=== PATIENT | female | born 2000 | race Asian ===

== ENCOUNTER 2024-09-20 06:33 | Inpatient (IN) | payer MEDICAID, SELFPAY ==
[2024-09-20] VITALS (93 sets, daily range): BP systolic 97–185; BP diastolic 53–86; PULSE 70–131; RESP 16–97; TEMP 36.6–36.8; O2SAT 75–100; BMI 28.4
--- NOTE | 2024-09-20 07:22 | PD.LDHP ---
Documentation for date of: 09/20/24 OB Labor/Induct. HPI History of Present Illness Chief complaint: 23 y/o 39w 4d presents to L&D in early labor at 3 cm : 2 Para: 1 Term pregnancies: 1 pregnancies: 0 Living children: 1 History of Abortions: Spontaneous and Elective: 0 History of Vaginal deliveries: 1 History of sections: No History of : No DARRYL: 09/23/24 Gestational Age (weeks): 39 Gestational Age (days): 4 History of present illness: 23 y/o 39w 4d presents to L&D in early labor at 3 cm vertex, eufemia every 5 minutes, rating pain 9/10 and requesting an epidural. Pt was 1.5 cm at office yesterday and today she has progressed to 3 cm. Pt's has been unremarkable with the exception of MFM [facility] found the fetus to have 2 small VSD, other than that pt has had a normal . GBS is neg. EFW 3200g. Pt has a hx of nvdx1. No complications. History of Present Adequate Care: Yes Ultrasounds: normal 1st trimester US and normal mid trimester US Obstetrical complications: none Medical complications: none Labs Maternal Blood Type: O Pos Labs: Positive: Rubella Titre, Negative: RPR, Hepatitis B, HIV, Chlamydia, Gonorrhea and Group Beta Strep and Unknown: Herpes Type 1, Herpes Type 2 and Covid-19 Review of Systems Review of Systems Systems Reviewed: All systems reviewed, normal except as documented Past Medical History Surgical History SURGICAL: Negative Section Meds Home Medications and Allergies Home Medications ?Medication ?Instructions ?Recorded ?Confirmed ?Type folic acid 1 mg tablet 1 mg PO DAILY 05/20/23 05/20/23 History vits no.130-ferrous fum 1 tab PO DAILY 05/20/23 05/20/23 History 27 mg iron-folic acid 800 mcg tablet ( Vitamin) Allergies Allergy/AdvReac Type Severity Reaction Status Date / Time No Known Allergies Allergy Verified 09/20/24 08:47 OB Exam Physical Exam Vital signs: Temp Pulse Resp BP 97.8 F 70 17 107/74 09/20/24 06:45 09/20/24 06:45 09/20/24 06:45 09/20/24 06:45 Constitutional Constitutional: mild distress (Secondary to painful contractions) Routine HEENT Exam Head: Present normocephalic and atraumatic Eye: Present EOMI, PERRL and normal accommodation ENT: Present mucous membranes moist Routine Neck Exam Neck: Present full ROM Routine Respiratory Exam Respiratory: Absent respiratory distress Routine Cardiovascular Exam Cardiovascular: Present RRR Routine Abdominal Exam Abdominal: Present soft and normoactive bowel sounds Comments: Gravid Uterus EFW 3200g Routine Exam External: Present normal urethra appearance; Absent lesions Detailed Labor and Delivery Exam Dilation (cm): 3 Effacement (%): 80 Cervix position: posterior station: -2 Consistency: soft Presentation: Vertex Membranes: intact Baseline heart rate: 125 monitor accelerations: 15x15 monitor decelerations: None care home variability: Moderate (11-25) Contraction frequency (min): 5-6 Routine Extremities Exam Extremities: Present full ROM Routine Back/Spine/Pelvis Exam Back/Spine: Present full ROM Routine Skin Exam Skin: Present intact, dry and warm Routine Neurological Exam Neurological: Present alert, oriented X3 and CN II-XII intact Routine Psychiatric Exam Psychiatric: Present normal affect and normal thought process OB Results Labs 09/20/24 07:15 OB Assessment & Plan Assessment and Plan (1) Normal labor: Status: Acute (2) with 39 completed weeks gestation: Status: Acute Additional Plan Induction method: none Plan: augmentation, anticipate NVD and consult MD corral Additional Plan Comment: Routine Admit orders Consult anesthesia for an epidural Continuous EFM Alert peds to do a echo
[2024-09-20 07:58] LABS: Basophils % (Auto) 0 % (0-2.5); Eosinophils # (Auto) 0.1 Thou/mm3 (0.0-0.5); Eosinophils % (Auto) 1 % (0-10); Hematocrit 34.4 % (36.0-46.0); Hemoglobin 11.2 g/dL (12.0-16.0); Immature Granulocytes % (Auto) 1 % (0-0); Immature Granulocytes Auto 0.09 Thou/mm3 (0.00-0.00); Lymphocytes # (Auto) 2.2 Thou/mm3 (1.0-4.8); Lymphocytes % (Auto) 23 % (10-50); Mean Corpuscular HGB Conc 32.6 g/dl (31.0-37.0); Mean Corpuscular Hemoglobin 26.7 pg (25.0-35.0); Mean Corpuscular Volume 82 fL (80-100); Monocytes # (Auto) 1.1 Thou/mm3 (0.0-0.8); Monocytes % (Auto) 11 % (0-12); Neutrophils # (Auto) 6.1 Thou/mm3 (1.8-7.7); Neutrophils % (Auto) 64 % (37-80); Nucleated Red Blood Cell % 0 /100 WBC (0); Platelet Count 202 Thou/mm3 (140-440); RDW Standard Deviation 45.1 fL (36.4-46.3); White Blood Count 9.6 Thou/mm3 (3.6-11.0)
[2024-09-20 08:41] LABS: Syphilis Nonreactive (Nonreactive)
[2024-09-20] MEDS: RINGERS LACTATED 1000 ML 1,000 ML 100 ML IV ×2 (09:21→10:15)
--- NOTE | 2024-09-20 10:44 | PD.LDPN ---
Documentation for date of: 09/20/24 OB Labor Progress Note Pain Control Pain control: epidural Pelvic Exam Dilation (cm): 7 Effacement (%): 90 station: -1 Amniotic membrane status: Bulging Contractions Monitor mode: External Contraction frequency: 2-3 Contraction phase: Contraction Contraction intensity: Moderate Status status: Category l Assessment and Plan Assessment: active labor Plan OB labor note: continuous present management Comments: Pt is laboring well on her own making excellent cervical change Plan to AROM later Anticipate
[2024-09-20] MEDS: BENZO/LANO/ALOE (Dermoplast) 60 GM CAN 1 SPRAY TOP ×2 (12:47→15:11)
[2024-09-20] MEDS: MINERAL OIL 30 ML UDC TOP (12:47)
[2024-09-20] MEDS: IBUPROFEN TAB 400 MG TABLET 800 MG PO ×2 (12:48→21:03)
[2024-09-20] MEDS: TRANEXAMIC ACID 1,000 MG IVPB 1,000 MG/100 ML BAG 200 MG IV ×2 (12:52→14:14)
--- NOTE | 2024-09-20 12:59 | OBDSUM_ITS ---
Data ([place]) Data Hx Section: No Maternal Blood Type: O Pos Rubella Titre: Positive RPR: Non-reactive Labs: Negative: RPR, Hepatitis B, HIV, Chlamydia, Gonorrhea and Group Beta Strep and Unknown: Herpes Type 1 and Herpes Type 2 : 2 Para: 1 Term: 1 : 0 Livin : 0 Delivery Data ([place]) Labor Data Stimulated/Augmented: No Induction: No ROM Date: 09/20/24 ROM Time: 12:16 Rupture Type: SROM Amniotic Fluid: Clear Delivery Data EDC: 09/23/24 EDC calculated by:: LMP/early US confirmation Labor Onset Stage 1 Date: 09/20/24 Labor Onset Stage 1 Time: 09:00 Labor Onset Stage 2 Date: 09/20/24 Labor Onset Stage 2 Time: 12:16 Delivery Date: 09/20/24 Delivery Time: 12:24 Gestational age (weeks): 39 Gestational age (days): 4 Placenta Delivery Date: 09/20/24 Placenta Delivery Time: 12:32 Delivered by: Kayla Zeng Delivery nurse: Abril Mcknight Certified Medical Technician at delivery: No Support person(s) at delivery: FOB Other staff at delivery: 2nd Nurse Other staff at delivery: 2nd Nurse Other staff at delivery: Nursery Nurse Other staff at delivery: Nursery Nurse Other staff at delivery: Milagros Estrada Other staff at delivery: Elizabeth Willingham Other staff at delivery: Roslyn Uriostegui Other staff at delivery: Natalie Macario Delivery Method Delivery: Vaginal Delivery Type: Spontaneous Presentation: Vertex Position: OA Anesthesia Type Primary Anesthesia: Epidural Delivery Room Medications Other Intrapartum Medications: No Post Delivery Medications N/A: No Placenta Placenta Delivery: Spontaneous Placenta Cultures Obtained: No Placenta Sent for Examination: No Cord Sample: Cord Blood Obtained Episiotomy Episiotomy: None Lacerations #1: Perineal: 2nd degree Perineal repair Sutures used for repair: 3.0 Vicryl (ct) EBL Estimated blood loss (ml): 300 Umbilical Cord Umbilical Vessels: 3 Nuchal Cord: x2 Tightly Body Cord: Not Applicable Additional Procedures Patient came in labor this morning and progressed very quickly and by 12 was complete, after few pushes patient had an of a viable male . Head delivered with 2 nuchal cord easily reduced. 's anterior shoulder delivered with gentle downward traction subsequent deliver the posterior shoulder on the body without complications. Infant placed on mother's abdomen. Vigorous cry upon delivery. Cord was clamped. Cut by CNM. Cord blood obtain ed. Three-vessel cord noted. Placenta expelled spontaneously and intact. Patient sustained a second-degree perineal laceration. Repaired using a 3-[address] suture x 2. Excellent hemostasis achieved after vigorous fundal massage and removal of clots from the posterior fornix. EBL 300. Patient given IV Pitocin and TXA x 1. Sponge and needle count correct. Mother and baby stable, skin to skin and bonding in LDR. [place] Data ([place]) [place] Data Gender: Male Weight Grams: 3160g 1 Minute Total: 9 5 Minute Total: 9
[2024-09-20] MEDS: ONDANSETRON INJ 2 MG/ML INJ 2 ML 4 MG IV (13:41)
[2024-09-20] MEDS: ACETAMINOPHEN 325 MG TABLET 650 MG PO (14:43)
[2024-09-20 19:18] LABS: Basophils % (Auto) 0 % (0-2.5); Eosinophils % (Auto) 0 % (0-10); Hematocrit 27.1 % (36.0-46.0); Hemoglobin 8.9 g/dL (12.0-16.0); Immature Granulocytes % (Auto) 1 % (0-0); Lymphocytes # (Auto) 1.2 Thou/mm3 (1.0-4.8); Lymphocytes % (Auto) 7 % (10-50); Mean Corpuscular HGB Conc 32.8 g/dl (31.0-37.0); Mean Corpuscular Hemoglobin 27.5 pg (25.0-35.0); Mean Corpuscular Volume 84 fL (80-100); Monocytes # (Auto) 1.2 Thou/mm3 (0.0-0.8); Monocytes % (Auto) 7 % (0-12); Neutrophils % (Auto) 85 % (37-80); Nucleated Red Blood Cell % 0 /100 WBC (0); Platelet Count 187 Thou/mm3 (140-440); RDW Standard Deviation 46.2 fL (36.4-46.3); Red Blood Count 3.24 Miln/mm3 (4.00-5.20); White Blood Count 16.5 Thou/mm3 (3.6-11.0)
[2024-09-21 00:41] VITALS: BP 99/61; PULSE 78; RESP 16; TEMP 36.9; O2SAT 96
[2024-09-21 03:49] VITALS: BP 106/68; PULSE 76; RESP 16; TEMP 36.9; O2SAT 97
[2024-09-21 05:26] LABS: Basophils % (Auto) 0 % (0-2.5); Eosinophils % (Auto) 0 % (0-10); Hematocrit 24.6 % (36.0-46.0); Immature Granulocytes % (Auto) 1 % (0-0); Immature Granulocytes Auto 0.16 Thou/mm3 (0.00-0.00); Lymphocytes # (Auto) 1.6 Thou/mm3 (1.0-4.8); Lymphocytes % (Auto) 11 % (10-50); Mean Corpuscular HGB Conc 32.5 g/dl (31.0-37.0); Mean Corpuscular Hemoglobin 27.7 pg (25.0-35.0); Mean Corpuscular Volume 85 fL (80-100); Monocytes # (Auto) 1.5 Thou/mm3 (0.0-0.8); Monocytes % (Auto) 11 % (0-12); Neutrophils # (Auto) 10.8 Thou/mm3 (1.8-7.7); Neutrophils % (Auto) 77 % (37-80); Nucleated Red Blood Cell % 0 /100 WBC (0); Platelet Count 172 Thou/mm3 (140-440); RDW Standard Deviation 47.1 fL (36.4-46.3); Red Blood Count 2.89 Miln/mm3 (4.00-5.20); White Blood Count 14.1 Thou/mm3 (3.6-11.0)
[2024-09-21] MEDS: ACETAMINOPHEN 325 MG TABLET 650 MG PO (05:56)
--- NOTE | 2024-09-21 06:01 | ESDS_ITS ---
DS: Providers Provider Date of admission: 09/20/24 07:07 Primary care physician: Physician No Primary/Family Admitting Provider: Víctor Bernard MD Attending Provider on Admission: Kayla Zeng CNM Attending Provider on DC: Kayla Zeng CNM Discharging Provider: Kayla Zeng CNM Anticipated date of discharge: 09/21/24 DS: Diagnosis Discharge Diagnosis (1) Normal spontaneous vaginal delivery: Status: Acute (2) Encounter for care of lactating mother: Status: Acute (3) Normal labor: Status: Acute (4) with 39 completed weeks gestation: Status: Acute Problem List Completed Was Problem List Reviewed/Reconciled?: Yes Summary/Hosp Course Brief History: 23 y/o 39w 4d presents to L&D in early labor at 3 cm vertex, eufemia every 5 minutes, rating pain 9/10 and requesting an epidural. Pt was 1.5 cm at office yesterday and today she has progressed to 3 cm. Pt's has been unremarkable with the exception of MFM [facility] found the fetus to have 2 small VSD, other than that pt has had a normal . GBS is neg. EFW 3200g. Pt has a hx of nvdx1. No complications. 09/20/24: Patient came in labor this morning and progressed very quickly and by 12 was complete, after few pushes patient had an of a viable male infant. Head delivered with 2 nuchal cord easily reduced. 's anterior shoulder delivered with gentle downward traction subsequent deliver the posterior shoulder on the body without complications. Infant placed on mother's abdomen. Vigorous cry upon delivery. Cord was clamped. Cut by DEBBIE. Cord blood obtained. Three-vessel cord noted. Placenta expelled spontaneously and intact. Patient sustained a second-degree perineal laceration. Repaired using a 3-[address] suture x 2. Excellent hemostasis achieved after vigorous fundal massage and removal of clots from the posterior fornix. EBL 300. Patient given IV Pitocin and TXA x 1. Sponge and needle count correct. Mother and baby stable, skin to skin and bonding in LDR. 09/21/24: PPD#1 Pt is stable and afebrile, ambulating, voiding with no problems, denies dizziness and SOB. Uterus is non-tender, fundus firm and minimal lochai. Pt complains of a headache, since the epidural was difficult to place, seems like a spinal headache, will call anesthesia to come evaluate and possible blood patch. Then pt can go home. Discharge instructions given. FU with Kayla Zeng CNM in 3 weeks . Peripartum Data Delivery Method: Normal Vaginal Delivery Episiotomy Description: None Laceration Description: yes and see Delivery Summary complications: none 1: Gender: Male Disposition of : home Status at Discharge Cognitive/behavioral status at discharge: Alert and oriented x 3 Functional status at discharge: independent ambulation Overall status at discharge: patient is progressing back to baseline Time Spent with Patient Time attestation: Total time spent providing and/or coordinating discharge services: Time spent: Greater than 30 minutes Exam Vital Signs Temp Pulse Resp BP Pulse Ox 98 F 86 18 116/66 83 L 09/20/24 10:32 09/20/24 12:35 09/20/24 10:32 09/20/24 12:35 09/20/24 12:24 Constitutional Constitutional: no acute distress Routine HEENT Exam Head: Present normocephalic and atraumatic Eye: Present EOMI, PERRL and normal accommodation ENT: Present mucous membranes moist Routine Neck Exam Neck: Present supple, full ROM and trachea midline Routine Respiratory Exam Respiratory: Present chest non-tender, lungs clear, normal breath sounds and no resp distress Routine Cardiovascular Exam Cardiovascular: Present RRR Routine Abdominal Exam Abdominal: Present soft and normoactive bowel sounds; Absent tenderness or distended Comments: Uterus nontender Fundus firm Routine Exam External: Present normal urethra appearance and lacerations (Healing); Absent lesions Routine Extremities Exam Extremities: Present full ROM, pulses intact and normal capillary refill; Absent calf tenderness or tenderness Routine Back/Spine/Pelvis Exam Back/Spine: Present full ROM Routine Skin Exam Skin: Present intact, dry and warm Routine Neurological Exam Neurological: Present alert, oriented X3 and CN II-XII intact Routine Psychiatric Exam Psychiatric: Present normal affect and normal thought process Discharge Plan Plan Patient Disposition: HOME (Self Care) Patient condition on transfer: Stable Prescriptions/Referrals Prescriptions/Med Rec: New ibuprofen 800 mg tablet 800 mg PO Q6H MDD 4 PRN (Reason: pain) Qty: 90 0RF docusate sodium [Colace] 100 mg capsule 100 mg PO BID Qty: 60 0RF lanolin 50 % ointment 1 applic topical TID PRN (Reason: skin irritation) Qty: 15 0RF Continued Vitamin 27 mg iron- 800 mcg tablet 1 tab PO DAILY Patient Comments: TAKE 1 TABLET BY MOUTH ONCE DAILY Discontinued folic acid 1 mg tablet 1 mg PO DAILY Patient Comments: TAKE 1 TABLET BY MOUTH EVERY DAY Referrals: No Primary/Family,Physician [Primary Care Provider] - Patient/Caregiver Discharge Instructions Meds to Beds: No Discharge Activity: activity as tolerated Other Discharge Activity Instructions:: Follow-up with Kayla Zeng CNM in 3 weeks Education Materials: After a Vaginal , Depression, After Delivery Concerns, : Caring for Yourself Print Language: [employer] Stand Alone Forms: [facility] Award Info., Patient Portal Info Letter Discharge Order Discharge Orders: Discharge (Routine); Ordered 09/21/24 Ordered By: Kayla Zeng Planned Discharge Date 09/21/24
[2024-09-21 08:00] VITALS: BP 105/66; PULSE 80; RESP 16; TEMP 37; O2SAT 97
[2024-09-21] MEDS: DOCUSATE SOD 100 MG CAPSULE PO (09:55)
[2024-09-21] MEDS: ACETAMINOPHEN IVPB 1,000 MG/100 ML VIAL 250 MG IV (10:05)
[2024-09-21 12:00] VITALS: BP 108/65; PULSE 75; RESP 17; TEMP 36.8; O2SAT 97
== END 2024-09-21 14:45 | disposition home or self-care (01) | DRG 560 ==
LOC: S4SX 14:22 → S4NX 15:51
PROVIDERS: Admitting Provider Obstetrics & Gynecology; Visit Provider Nurse Practitioner Women's Health
DX: O69.1XX0 Labor and delivery complicated by cord around neck, with compression, not applicable or unspecified (principal); O70.1 Second degree perineal laceration during delivery; Z37.0 Single live birth; Z3A.39 39 weeks gestation of pregnancy
CPT/HCPCS: 36415; 85025; 86780; 86850; 86900; 86901; J0131; J2405; J2795; J3010; J3490; J7120; A9270